=== PATIENT | female | born 1995 | race African-American/Black ===

== ENCOUNTER 2023-01-24 09:40 | Outpatient (REF) | payer MEDICAID, SELFPAY ==
[2023-01-24 10:45] LABS: Appearance Urine Clear; Color Urine Orange; Glucose Urine UA Negative (Negative); Leukocyte Esterase Urine Trace (Negative); Nitrite Urine Negative (Negative); PH 6.5 (5.0-9.0); UMIC TRIGGER UACC YES; Urine Blood Large (3+) (Negative); Urine Ketones Negative (Negative); Urine Protein 300 (3+) mg/dL (Neg-Trace)
[2023-01-24 10:48] LABS: Bacteria Urine None Seen (None Seen); Hyaline Casts Urine 0-2 /LPF (0-2); RBC Urine >20 /HPF (0-2); UACC Culture Trigger YES
[2023-01-24 10:59] LABS: Anion Gap 12 (12-20); Blood Urea Nitrogen 15 mg/dL (9-16); Calcium 9.5 mg/dL (8.4-10.2); Carbon Dioxide 24 mmol/L (22-29); Chloride 108 mmol/L (96-108); Estimated Glomerular Filt Rate 42; Potassium 4.3 mmol/L (3.3-5.1); Sodium 140 mmol/L (135-145)
[2023-01-24 11:44] LABS: Creatinine Urine 181.26 mg/dL
[2023-01-24 12:08] LABS: Microalbum/Creatinine Ratio Ur 1103.3 ug/mg cr (<30); Microalbumin Urine > 2000.0 mg/L
[2023-01-24 12:19] LABS: Protein/Creatinine Ratio, Ur 2.91 (<0.2); Total Protein Urine Random 527 mg/dL (<12)
== END 2023-01-24 09:41 | disposition home or self-care (01) ==
LOC: HO.10HDL 09:40
PROVIDERS: Visit Provider Internal Medicine Nephrology
DX: O10.919 Unspecified pre-existing hypertension complicating pregnancy, unspecified trimester (principal); O14.90 Unspecified pre-eclampsia, unspecified trimester; Z3A.00 Weeks of gestation of pregnancy not specified
CPT/HCPCS: 36415; 80051; 81001; 82043; 82310; 82565; 82570; 84156; 84520; 87086